=== PATIENT | female | born 1955 | race Caucasian/White ===

== ENCOUNTER 2016-03-06 08:21 | Emergency (ER) | payer OTHER, BC ==
--- NOTE | 2016-03-06 09:51 | EDDOCDS ---
Physician Documentation [facility] Name: Krysta Varma Age: 60 yrs Sex: Female : 1955 Arrival Date: 03/06/2016 Time: 08:21 Bed I5 / M5 Private MD: Yary Martin A Disposition: 03/06/16 09:46 Discharged to Home/Self Care. Impression: Contusion of right wrist, Contusion of right knee. - Condition is Stable. - Discharge Instructions: Contusion. - Medication Reconciliation, Local Pharmacy Hours form. - Follow up: Emergency Department; When: As needed; Reason: Worsening of conditions. Follow up: Private Physician; When: 4 - 5 days; Reason: Wound/Symptom Recheck, Recheck today's complaints, Continuance of care. - Problem is new. - Symptoms are unchanged. - Notes: THERE WAS NO FRACTURES ON YOUR XRAYS TODAY. PLEASE FOLLOW UP WITH YOUR PRIMARY CARE PROVIDER NEXT WEEK TO RECHECK YOUR SYMPTOMS. Historical: - Allergies: PENICILLINS (confusion); - Home Meds: 1. Lumigan 0.03 % Opht drop 1 drop once daily 2. Metrogel Vaginal 0.75 % vaginal gel 1 applicatorful once daily 3. Premarin 0.625 mg/gram Vagl crea 2 times per wk - PMHx: none; - PSHx: Appendectomy; ; Cholecystectomy; Tubal ligation; - Social history: Smoking status: Patient states was never smoker of tobacco. No barriers to communication noted, The patient speaks fluent Maldivian. - Family history: Not pertinent. - : The pt / caregiver states he / she is not on anticoagulants. Home medication list is obtained from the patient. - Exposure Risk Screening:: None identified. Vital Signs: 03/06 08:34 BP 148 / 91; Pulse 83; Resp 16; Temp 98.2(O); Pulse Ox 100% on R/A; Weight 84.82 kg / ml6 187 lbs (R); Height 5 ft. 9 in. (175.26 cm) (R); Pain 3/10; 08:34 Body Mass Index 27.61 (84.82 kg, 175.26 cm) ml6 MDM: 08:50 Financial registration complete. lg 09:03 Wrist, Complete Ordered. EDMS 09:03 Knee, Complete Ordered. EDMS 09:21 [facility] Payment Agreement was scanned into [employer] and attached to record. lg Signatures: Dispatcher [employer] Linda Carlton, Reg Reg lg Po Henderson RN RN ml6 Ariella Ibanez RN RN pml Rabia Millan, TAWANNA PAKenneth dt4 The chart was reviewed and I authenticate all verbal orders and agree with the evaluation and treatment provided.Attachments: 09:21 [facility] Payment Agreement lg MTDD
--- NOTE | 2016-03-06 09:52 | EDDOCDS ---
Nurse's Notes [facility] Name: Krysta Varma Age: 60 yrs Sex: Female : 1955 Arrival Date: 03/06/2016 Time: 08:21 Bed I5 / M5 Private MD: Yary Martin A Diagnosis: Contusion of right wrist;Contusion of right knee Presentation: 03/06 08:34 Presenting complaint: Patient states: states was walking to copier and tripped, c/o ml6 pain in right palm and bilateral knees. Adult Sepsis Screening: The patient does not have new or worsening altered mentation. Patient's respiratory rate is less than 22. Systolic blood pressure is greater than 100. Patient has a qSOFA score of 0- Negative Sepsis Screen. Suicide/Homicide risk assessment- the patient denies having any suicidal and/or homicidal ideations and does not present with any other emotional, behavioral or mental health complaints. 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 Transition of care: patient was not received from another setting of care. 08:34 Acuity: JESE Level 4 ml6 08:34 Method Of Arrival: Walkin/Carried/Asstd ml6 Triage Assessment: 08:41 General: Appears in no apparent distress, Behavior is appropriate for age, cooperative. ml6 Pain: Pain currently is 3 out of 10 on a pain scale. Pt Declines HIV testing. Neurological: Level of Consciousness is awake, alert. Respiratory: Airway is patent Respiratory effort is even, unlabored, Respiratory pattern is regular. Derm: Skin is pink, warm & dry. Musculoskeletal: No deficits noted. Historical: - Allergies: PENICILLINS (confusion); - Home Meds: 1. Lumigan 0.03 % Opht drop 1 drop once daily 2. Metrogel Vaginal 0.75 % vaginal gel 1 applicatorful once daily 3. Premarin 0.625 mg/gram Vagl crea 2 times per wk - PMHx: none; - PSHx: Appendectomy; ; Cholecystectomy; Tubal ligation; - Social history: Smoking status: Patient states was never smoker of tobacco. No barriers to communication noted, The patient speaks fluent Irish. - Family history: Not pertinent. - : The pt / caregiver states he / she is not on anticoagulants. Home medication list is obtained from the patient. - Exposure Risk Screening:: None identified. Screenin:45 Screening information is obtained from the patient. Fall risk: At risk due to prior ml6 history of falls. Assistance ADL's: requires no assistance with activities of daily living. Abuse/DV Screen: The patient / caregiver reports he/she is: not in a situation that causes fear, pain or injury. Nutritional screening: No deficits noted. Advance Directives: There is no active DNR order. home support is adequate. Assessment: 08:45 General: Appears in no apparent distress, Behavior is appropriate for age, cooperative. ml6 Pain: Pain currently is 3 out of 10 on a pain scale. Neurological: Level of Consciousness is awake, alert. Respiratory: Airway is patent Respiratory effort is even, unlabored, Respiratory pattern is regular, symmetrical. Derm: Skin is pink, warm & dry. 09:49 General: Appears in no apparent distress, Behavior is appropriate for age, crying. pml Pain: Location: right wrist Pain currently is 3 out of 10 on a pain scale. Neurological: Level of Consciousness is awake, alert, Oriented to person, place, time. Cardiovascular: Capillary refill < 3 seconds. Respiratory: Airway is patent Respiratory effort is even, unlabored. GI: Abdomen is non- distended. Derm: Skin is pink, warm & dry. Vital Signs: 08:34 BP 148 / 91; Pulse 83; Resp 16; Temp 98.2(O); Pulse Ox 100% on R/A; Weight 84.82 kg ml6 (R); Height 5 ft. 9 in. (175.26 cm) (R); Pain 3/10; 08:34 Body Mass Index 27.61 (84.82 kg, 175.26 cm) ml6 Vitals: 08:34 Log In Time: March 06, 2016 at 08:20. ml6 ED Course: 08:22 Patient visited by Ida Holt. mm15 08:22 Yary Martin is Private Physician. mm15 08:22 Patient moved to Waiting mm15 08:34 Triage Initiated ml6 08:36 Patient moved to I5 / ml6 08:45 The patient / caregiver is instructed regarding the plan of care and ED course. ml6 08:45 No IV's were initiated during this patient's visit. No procedures done that require ml6 assistance. 08:46 Patient visited by Po Henderson RN. ml6 08:49 Rabia Millan [facility]C [facility] dt4 08:49 Donald Conde MD is Attending Physician. dt4 08:49 Patient visited by Rabia Millan PA-C. dt4 09:18 Patient name changed from Krysta\S\M\S\Kojo\S\ to Krysta\S\Handy\S\Kojo. EDMS 09:21 [facility] Payment Agreement was scanned into [employer] and attached to record. Order Results: There are currently no results for this order. Outcome: 09:46 Discharge ordered by Provider. dt4 09:49 Discharge Assessment: Patient awake, alert and oriented x 3. No cognitive and/or pml functional deficits noted. Patient verbalized understanding of disposition instructions. patient administered narcotics - no. The following High Risk Discharge criteria are identified: None. Discharged to home ambulatory. Condition: good Condition: stable. Discharge instructions given to patient, Instructed on discharge instructions, follow up and referral plans. Demonstrated understanding of instructions, Pt was receptive of discharge instructions/ teaching. No special radiology studies were completed. Property sent home with patient. 09:51 Patient left the ED. pml Signatures: Dispatcher [facility] EDFL Linda Carolina, Reg Reg Po Henderson RN RN ml6 Ariella Ibanez RN RN pml Ida Holt mm15 Rabia Millan PA-C PA-C dt4 JUVENTINO
--- NOTE | 2016-03-06 10:42 | REP ---
6 view right knee series 08/15 Indication right knee pain after fall Comparison: None Findings: There is moderate to advanced narrowing of the lateral aspect of the patellofemoral joint with small marginal osteophytes. There is minimal spurring as of the condyles and tibial plateau. There is no acute fracture or dislocation within the right knee. Advanced osteoarthritic changes are seen in the lateral aspect of the patellofemoral joint. There is no suprapatellar effusion. Impression: moderate to advanced osteoarthritic changes in the lateral aspect of the patellofemoral joint. No acute fracture or joint effusion Signed by Nadya Ugarte MD 03/06/2016 10:33 A
--- NOTE | 2016-03-06 10:44 | REP ---
Four view right wrist series, 03/06/2016 Indication: right wrist pain after fall Comparison: None Findings: There is no acute fracture, subluxation, or dislocation within the right wrist. Visualized portions of the metacarpals, carpal bones, distal radius and ulna are intact. Minimal spurring is noted within the ulnar styloid process, and osteoarthritic changes are seen dorsally at the carpal-metacarpal joints, especially the third carpal-metacarpal joint. Impression: no acute fracture or dislocation in the right wrist. Mild generalized soft tissue swelling about the wrist and overlying the ulnar aspect of the fifth metacarpal. Signed by Nadya Ugarte MD 03/06/2016 10:35 A
--- NOTE | 2016-03-08 10:52 | EDDOCDS ---
Physician Documentation [facility] Name: Krysta Varma Age: 60 yrs Sex: Female : 1955 Arrival Date: 03/06/2016 Time: 08:21 Bed I5 / M5 Private MD: Yary Martin A Disposition: 03/06/16 09:46 Discharged to Home/Self Care. Impression: Contusion of right wrist, Contusion of right knee. - Condition is Stable. - Discharge Instructions: Contusion. - Medication Reconciliation, Local Pharmacy Hours form. - Follow up: Emergency Department; When: As needed; Reason: Worsening of conditions. Follow up: Private Physician; When: 4 - 5 days; Reason: Wound/Symptom Recheck, Recheck today's complaints, Continuance of care. - Problem is new. - Symptoms are unchanged. - Notes: THERE WAS NO FRACTURES ON YOUR XRAYS TODAY. PLEASE FOLLOW UP WITH YOUR PRIMARY CARE PROVIDER NEXT WEEK TO RECHECK YOUR SYMPTOMS. Historical: - Allergies: PENICILLINS (confusion); - Home Meds: 1. Lumigan 0.03 % Opht drop 1 drop once daily 2. Metrogel Vaginal 0.75 % vaginal gel 1 applicatorful once daily 3. Premarin 0.625 mg/gram Vagl crea 2 times per wk - PMHx: none; - PSHx: Appendectomy; ; Cholecystectomy; Tubal ligation; - Social history: Smoking status: Patient states was never smoker of tobacco. No barriers to communication noted, The patient speaks fluent Emirati. - Family history: Not pertinent. - : The pt / caregiver states he / she is not on anticoagulants. Home medication list is obtained from the patient. - Exposure Risk Screening:: None identified. Vital Signs: 03/06 08:34 BP 148 / 91; Pulse 83; Resp 16; Temp 98.2(O); Pulse Ox 100% on R/A; Weight 84.82 kg / ml6 187 lbs (R); Height 5 ft. 9 in. (175.26 cm) (R); Pain 3/10; 08:34 Body Mass Index 27.61 (84.82 kg, 175.26 cm) ml6 MDM: 08:50 Financial registration complete. lg 09:03 Wrist, Complete Ordered. EDMS 09:03 Knee, Complete Ordered. EDMS 09:21 [facility] Payment Agreement was scanned into [employer] and attached to record. lg 14:48 T-Sheet-- Draft Copy was scanned into [employer] and attached to record. gb 14:48 Radiology Report was scanned into [employer] and attached to record. gb Signatures: Dispatcher [employer] EDMS Chyna Hendrickson, Reg Reg gb Linda Carolina, Reg Reg lg Po Henderson RN RN ml6 Ariella Ibanez RN RN pml Rabia Millan PA-C PAKenneth dt4 The chart was reviewed and I authenticate all verbal orders and agree with the evaluation and treatment provided.Attachments: 09:21 [facility] Payment Agreement lg 14:48 T-Sheet-- Draft Copy gb Chart Complete MTDD
--- NOTE | 2016-03-08 10:52 | EDDOCDS ---
Physician Documentation [facility] Name: Krysta Varma Age: 60 yrs Sex: Female : 1955 Arrival Date: 03/06/2016 Time: 08:21 Bed I5 / M5 Private MD: Yary Martin A Disposition: 03/06/16 09:46 Discharged to Home/Self Care. Impression: Contusion of right wrist, Contusion of right knee. - Condition is Stable. - Discharge Instructions: Contusion. - Medication Reconciliation, Local Pharmacy Hours form. - Follow up: Emergency Department; When: As needed; Reason: Worsening of conditions. Follow up: Private Physician; When: 4 - 5 days; Reason: Wound/Symptom Recheck, Recheck today's complaints, Continuance of care. - Problem is new. - Symptoms are unchanged. - Notes: THERE WAS NO FRACTURES ON YOUR XRAYS TODAY. PLEASE FOLLOW UP WITH YOUR PRIMARY CARE PROVIDER NEXT WEEK TO RECHECK YOUR SYMPTOMS. Historical: - Allergies: PENICILLINS (confusion); - Home Meds: 1. Lumigan 0.03 % Opht drop 1 drop once daily 2. Metrogel Vaginal 0.75 % vaginal gel 1 applicatorful once daily 3. Premarin 0.625 mg/gram Vagl crea 2 times per wk - PMHx: none; - PSHx: Appendectomy; ; Cholecystectomy; Tubal ligation; - Social history: Smoking status: Patient states was never smoker of tobacco. No barriers to communication noted, The patient speaks fluent Ivorian. - Family history: Not pertinent. - : The pt / caregiver states he / she is not on anticoagulants. Home medication list is obtained from the patient. - Exposure Risk Screening:: None identified. Vital Signs: 03/06 08:34 BP 148 / 91; Pulse 83; Resp 16; Temp 98.2(O); Pulse Ox 100% on R/A; Weight 84.82 kg / ml6 187 lbs (R); Height 5 ft. 9 in. (175.26 cm) (R); Pain 3/10; 08:34 Body Mass Index 27.61 (84.82 kg, 175.26 cm) ml6 MDM: 08:50 Financial registration complete. lg 09:03 Wrist, Complete Ordered. EDMS 09:03 Knee, Complete Ordered. EDMS 09:21 [facility] Payment Agreement was scanned into [employer] and attached to record. lg 14:48 T-Sheet-- Draft Copy was scanned into [employer] and attached to record. gb 14:48 Radiology Report was scanned into [employer] and attached to record. gb Signatures: Dispatcher [employer] EDMS Chyna Hendrickson, Reg Reg gb Linda Carolina, Reg Reg lg Po Henderson RN RN ml6 Ariella Ibanez RN RN pml Rabia Millan PA-C PAKenneth dt4 The chart was reviewed and I authenticate all verbal orders and agree with the evaluation and treatment provided.Attachments: 09:21 [facility] Payment Agreement lg 14:48 T-Sheet-- Draft Copy gb Chart Complete MTDD
--- NOTE | 2016-03-08 10:53 | EDDOCDS ---
Nurse's Notes [facility] Name: Krysta Varma Age: 60 yrs Sex: Female : 1955 Arrival Date: 03/06/2016 Time: 08:21 Bed I5 / M5 Private MD: Yary Martin A Diagnosis: Contusion of right wrist;Contusion of right knee Presentation: 03/06 08:34 Presenting complaint: Patient states: states was walking to copier and tripped, c/o ml6 pain in right palm and bilateral knees. Adult Sepsis Screening: The patient does not have new or worsening altered mentation. Patient's respiratory rate is less than 22. Systolic blood pressure is greater than 100. Patient has a qSOFA score of 0- Negative Sepsis Screen. Suicide/Homicide risk assessment- the patient denies having any suicidal and/or homicidal ideations and does not present with any other emotional, behavioral or mental health complaints. Status: Patient is not a administrative services officer or dependent. Transition of care: patient was not received from another setting of care. 08:34 Acuity: JESE Level 4 ml6 08:34 Method Of Arrival: Walkin/Carried/Asstd ml6 Triage Assessment: 08:41 General: Appears in no apparent distress, Behavior is appropriate for age, cooperative. ml6 Pain: Pain currently is 3 out of 10 on a pain scale. Pt Declines HIV testing. Neurological: Level of Consciousness is awake, alert. Respiratory: Airway is patent Respiratory effort is even, unlabored, Respiratory pattern is regular. Derm: Skin is pink, warm & dry. Musculoskeletal: No deficits noted. Historical: - Allergies: PENICILLINS (confusion); - Home Meds: 1. Lumigan 0.03 % Opht drop 1 drop once daily 2. Metrogel Vaginal 0.75 % vaginal gel 1 applicatorful once daily 3. Premarin 0.625 mg/gram Vagl crea 2 times per wk - PMHx: none; - PSHx: Appendectomy; ; Cholecystectomy; Tubal ligation; - Social history: Smoking status: Patient states was never smoker of tobacco. No barriers to communication noted, The patient speaks fluent Korean. - Family history: Not pertinent. - : The pt / caregiver states he / she is not on anticoagulants. Home medication list is obtained from the patient. - Exposure Risk Screening:: None identified. Screenin:45 Screening information is obtained from the patient. Fall risk: At risk due to prior ml6 history of falls. Assistance ADL's: requires no assistance with activities of daily living. Abuse/DV Screen: The patient / caregiver reports he/she is: not in a situation that causes fear, pain or injury. Nutritional screening: No deficits noted. Advance Directives: There is no active DNR order. home support is adequate. Assessment: 08:45 General: Appears in no apparent distress, Behavior is appropriate for age, cooperative. ml6 Pain: Pain currently is 3 out of 10 on a pain scale. Neurological: Level of Consciousness is awake, alert. Respiratory: Airway is patent Respiratory effort is even, unlabored, Respiratory pattern is regular, symmetrical. Derm: Skin is pink, warm & dry. 09:49 General: Appears in no apparent distress, Behavior is appropriate for age, crying. pml Pain: Location: right wrist Pain currently is 3 out of 10 on a pain scale. Neurological: Level of Consciousness is awake, alert, Oriented to person, place, time. Cardiovascular: Capillary refill < 3 seconds. Respiratory: Airway is patent Respiratory effort is even, unlabored. GI: Abdomen is non- distended. Derm: Skin is pink, warm & dry. Vital Signs: 08:34 BP 148 / 91; Pulse 83; Resp 16; Temp 98.2(O); Pulse Ox 100% on R/A; Weight 84.82 kg ml6 (R); Height 5 ft. 9 in. (175.26 cm) (R); Pain 3/10; 08:34 Body Mass Index 27.61 (84.82 kg, 175.26 cm) ml6 Vitals: 08:34 Log In Time: March 06, 2016 at 08:20. ml6 ED Course: 08:22 Patient visited by Ida Holt. mm15 08:22 Yary Martin is Private Physician. mm15 08:22 Patient moved to Waiting mm15 08:34 Triage Initiated ml6 08:36 Patient moved to I5 / ml6 08:45 The patient / caregiver is instructed regarding the plan of care and ED course. ml6 08:45 No IV's were initiated during this patient's visit. No procedures done that require ml6 assistance. 08:46 Patient visited by Po Henderson RN. ml6 08:49 Rabia Millan [facility]-C [facility]. dt4 08:49 Donald Coned MD is Attending Physician. dt4 08:49 Patient visited by Rabia Millan PA-C. dt4 09:18 Patient name changed from Krysta\S\M\S\Kojo\S\ to Krysta\S\Handy\S\Kojo. EDMS 09:21 [facility] Payment Agreement was scanned into [employer] and attached to record. lg 11:14 Knee, Complete Returned. EDMS 11:14 Wrist, Complete Returned. EDMS 14:48 T-Sheet-- Draft Copy was scanned into [employer] and attached to record. gb 14:48 Radiology Report was scanned into [employer] and attached to record. gb Order Results: Radiology Order: Wrist, Complete Test: Wrist, Complete REASON FOR EXAMINATION: right wrist pain after fall; Four view right wrist series, 03/06/2016; ; Indication: right wrist pain after fall; ; Comparison: None; ; Findings: There is no acute fracture, subluxation, or dislocation within the; right wrist. Visualized portions of the metacarpals, carpal bones, distal; radius and ulna are intact. Minimal spurring is noted within the ulnar styloid; process, and osteoarthritic changes are seen dorsally at the carpal-metacarpal; joints, especially the third carpal-metacarpal joint.; ; Impression: no acute fracture or dislocation in the right wrist. Mild; generalized soft tissue swelling about the wrist and overlying the ulnar aspect; of the fifth metacarpal.; ; ; ; ; Signed by; Nadya Ugarte MD 03/06/2016 10:35 A; Radiology Order: Knee, Complete Test: Knee, Complete REASON FOR EXAMINATION: right knee pain after fall; 6 view right knee series 08/15; ; Indication right knee pain after fall; ; Comparison: None; ; Findings: There is moderate to advanced narrowing of the lateral aspect of the; patellofemoral joint with small marginal osteophytes. There is minimal spurring; as of the condyles and tibial plateau. There is no acute fracture or; dislocation within the right knee. Advanced osteoarthritic changes are seen in; the lateral aspect of the patellofemoral joint.; ; There is no suprapatellar effusion.; ; Impression: moderate to advanced osteoarthritic changes in the lateral aspect of; the patellofemoral joint. No acute fracture or joint effusion; ; ; Signed by; Nadya Ugarte MD 03/06/2016 10:33 A; Outcome: 09:46 Discharge ordered by Provider. dt4 09:49 Discharge Assessment: Patient awake, alert and oriented x 3. No cognitive and/or pml functional deficits noted. Patient verbalized understanding of disposition instructions. patient administered narcotics - no. The following High Risk Discharge criteria are identified: None. Discharged to home ambulatory. Condition: good Condition: stable. Discharge instructions given to patient, Instructed on discharge instructions, follow up and referral plans. Demonstrated understanding of instructions, Pt was receptive of discharge instructions/ teaching. No special radiology studies were completed. Property sent home with patient. 09:51 Patient left the ED. pml Signatures: Dispatcher [employer] EDMS Chyna Hendrickson, Reg Reg gb Linda Carolina, Reg Reg lg Po Henderson RN RN ml6 Ariella Ibanez RN RN pml Ida Holt mm15 Rabia Millan, PA-Patrick PA-C dt4 Chart Complete MTDRex
== END 2016-03-06 09:51 | disposition home or self-care (01) ==
LOC: M ED 08:21
DX: S60.211A Contusion of right wrist, initial encounter (principal); S80.01XA Contusion of right knee, initial encounter; W22.8XXA Striking against or struck by other objects, initial encounter; Y92.89 Other specified places as the place of occurrence of the external cause; Y93.9 Activity, unspecified; Y99.0 Civilian activity done for income or pay; Z79.899 Other long term (current) drug therapy; Z88.0 Allergy status to penicillin

== ENCOUNTER → 2017-02-02 | Outpatient (CLI) | payer OTHER ==
--- NOTE | 2017-02-02 13:03 | REPMRS ---
Patient History The patient states she had a clinical breast exam in 01/2017. Patient is postmenopausal. Family history of ovarian cancer in maternal cousin under age 50. Taking estrogen for 6 years. Digital Woman Screen Mammo: February 02, 2017 - Exam #: [id number] Bilateral CC and MLO view(s) were taken. Technologist: Keren Merritt, Technologist Prior study comparison: January 30, 2016, digital woman screen mammo performed at [facility]. January 28, 2015, digital woman screen mammo performed at [facility]. FINDINGS: There are scattered fibroglandular densities. There has been no change in the appearance of the mammogram from the prior studies. There is a mild amount of residual fibroglandular tissue which is fairly symmetric. There is no interval development of dominant mass, architectural distortion, or clustered microcalcification suggestive of malignancy. There are scattered, small, benign calcifications of doubtful clinical significance. No significant changes when compared with prior studies. ASSESSMENT: BI-RADS/ACR category 2 mammogram. Benign finding(s). Recommendation Routine screening mammogram in 1 year (for women over age 40). This mammogram was interpreted with the aid of an FDA-approved computer-aided dectection system. A. Negative x-ray reports should not delay biopsy if a dominant or clinically suspicious mass is present. B. Four to eight percent of cancers are not identified by mammography. C. Adenosis and dense breast may obscure an underlying neoplasm. Electronically Signed By: Agapito Quinonez MD 02/02/17 1434
== END ==
LOC: M WHC 08:39
PROVIDERS: ATTEND Nurse Practitioner Family
DX: Z12.31 Encounter for screening mammogram for malignant neoplasm of breast (principal)

== ENCOUNTER → 2017-05-19 | Outpatient (REF) | payer OTHER ==
[2017-05-19 12:20] LABS: BASO % 0.6 % (0.0-1.0); EOS # 0.1 10^3/uL (0.0-0.50); EOS % 1.5 % (0.0-3.0); HEMATOCRIT 39.9 % (36.0-47.0); HEMOGLOBIN 13.4 g/dl (12.0-16.0); IMMATURE GRANULOCYTE % 0.3 % (0-3.0); LYMPH # 1.1 10^3/uL (1.5-4.5); LYMPH % 15.3 % (24.0-44.0); MEAN CORPUSCULAR HEMOGLOBIN 29.9 pg (27.0-33.0); MEAN CORPUSCULAR HGB CONC 33.6 g/dl (32.0-36.5); MEAN CORPUSCULAR VOLUME 89.1 fl (80.0-96.0); MONO # 0.5 10^3/uL (0.0-0.8); MONO % 7.3 % (0.0-5.0); NEUTROPHILS # 5.4 10^3/uL (1.8-7.7); PLATELET COUNT, AUTOMATED 224 10^3/uL (150-450); RED BLOOD COUNT 4.48 10^6/uL (4.00-5.40); RED CELL DISTRIBUTION WIDTH 11.8 % (11.5-14.5); WHITE BLOOD COUNT 7.1 10^3/uL (4.0-10.0)
[2017-05-19 13:13] LABS: ALBUMIN 3.8 GM/DL (3.2-5.2); ALBUMIN/GLOBULIN RATIO 1.36 (1.00-1.93); ALKALINE PHOSPHATASE 57 U/L (45-117); ALT/SGPT 28 U/L (12-78); ANION GAP 8 MEQ/L (8-16); AST/SGOT 15 U/L (7-37); BILIRUBIN,TOTAL 0.3 MG/DL (0.2-1.0); BLOOD UREA NITROGEN 13 MG/DL (7-18); CALCIUM LEVEL 8.9 MG/DL (8.8-10.2); CARBON DIOXIDE LEVEL 28 MEQ/L (21-32); CHLORIDE LEVEL 103 MEQ/L (98-107); CHOLESTEROL LEVEL 175 MG/DL (<200); CHOLESTEROL RISK RATIO 2.215 (<5); GLOMERULAR FILTRATION RATE > 60.0 (>45); GLUCOSE, FASTING 102 MG/DL (70-100); HDL CHOLESTEROL 79 MG/DL (>40); NON-HDL-C 96 MG/DL; POTASSIUM SERUM 4.1 MEQ/L (3.5-5.1); SODIUM LEVEL 139 MEQ/L (136-145); TOTAL PROTEIN 6.6 GM/DL (6.4-8.2); TRIGLYCERIDES LEVEL 70 MG/DL (<150)
== END ==
LOC: M SFHCADAM 08:05
DX: Z00.00 Encounter for general adult medical examination without abnormal findings (principal)

== ENCOUNTER → 2018-03-18 | Outpatient (CLI) | payer OTHER ==
--- NOTE | 2018-03-18 14:55 | REPMRS ---
Patient History The patient states she had a clinical breast exam in 03/2018. Patient is postmenopausal. Family history of ovarian cancer under age 50 in maternal cousin, breast cancer at age 50 or over in maternal cousin. Took estrogen for 6 years 6 months. Digital Woman Screen Mammo: March 18, 2018 - Exam #: [id number] Bilateral CC and MLO view(s) were taken. Technologist: Yady Núñez Technologist Prior study comparison: February 02, 2017, digital woman screen mammo performed at [facility]. January 30, 2016, digital woman screen mammo performed at [facility]. January 28, 2015, digital woman screen mammo performed at [facility]. FINDINGS: There are scattered fibroglandular densities. There has been no change in the appearance of the mammogram from the prior studies. There is a mild amount of scattered fibroglandular density which is fairly symmetric. There is no interval development of dominant mass, architectural distortion, or clustered microcalcification suggestive of malignancy. 3-D tomosynthesis shows no additional findings. Assessment: BI-RADS/ACR category 1 mammogram. Negative. Recommendation Routine screening mammogram of both breasts in 1 year (for women over age 40). This patient's Lifetime Breast Cancer RIsk is estimated at 7.2 %. This mammogram was interpreted with the aid of an FDA-approved computer-aided dectection system. Electronically Signed By: Christofer Barry MD 03/18/18 [id number]
== END ==
LOC: M WHC 10:46
PROVIDERS: ATTEND Nurse Practitioner Family
DX: Z12.31 Encounter for screening mammogram for malignant neoplasm of breast (principal)

== ENCOUNTER → 2018-03-18 | Outpatient (REF) | payer OTHER ==
[2018-03-22 15:26] LABS: HPV HYBRID CAPTURE II Negative (Negative)
== END ==
LOC: M SFHCWAGY 11:09
PROVIDERS: ATTEND Nurse Practitioner Family
DX: Z12.4 Encounter for screening for malignant neoplasm of cervix (principal)

== ENCOUNTER → 2018-06-15 | Outpatient (REF) | payer OTHER ==
[2018-06-15 12:33] LABS: BASO % 0.6 % (0.0-1.0); EOS # 0.1 10^3/uL (0.0-0.50); EOS % 1.6 % (0.0-3.0); HEMATOCRIT 41.9 % (36.0-47.0); HEMOGLOBIN 13.7 g/dl (12.0-15.5); LYMPH # 1.5 10^3/uL (1.5-4.5); LYMPH % 30.9 % (24.0-44.0); MEAN CORPUSCULAR HEMOGLOBIN 30.2 pg (27.0-33.0); MEAN CORPUSCULAR HGB CONC 32.7 g/dl (32.0-36.5); MEAN CORPUSCULAR VOLUME 92.3 fl (80.0-96.0); MONO # 0.3 10^3/uL (0.0-0.8); MONO % 6.5 % (0.0-5.0); NEUTROPHILS # 2.9 10^3/uL (1.8-7.7); PLATELET COUNT, AUTOMATED 294 10^3/uL (150-450); RED BLOOD COUNT 4.54 10^6/uL (4.00-5.40); WHITE BLOOD COUNT 4.9 10^3/uL (4.0-10.0)
[2018-06-15 13:04] LABS: ALT/SGPT 28 U/L (12-78); BILIRUBIN,TOTAL 0.5 MG/DL (0.2-1.0); BLOOD UREA NITROGEN 12 MG/DL (7-18); CALCIUM LEVEL 9.3 MG/DL (8.8-10.2); CARBON DIOXIDE LEVEL 31 MEQ/L (21-32); CHLORIDE LEVEL 105 MEQ/L (98-107); GLOMERULAR FILTRATION RATE > 60.0 (>45); GLUCOSE, FASTING 88 MG/DL (70-100); POTASSIUM SERUM 5.1 MEQ/L (3.5-5.1); SODIUM LEVEL 140 MEQ/L (136-145); TOTAL PROTEIN 6.4 GM/DL (6.4-8.2)
== END ==
LOC: M SFHCADAM 07:52
PROVIDERS: ATTEND Family Medicine
DX: Z00.00 Encounter for general adult medical examination without abnormal findings (principal)

== ENCOUNTER 2018-09-20 07:56 | Day surgery (SDC) | payer OTHER ==
[~2018-09-20] VITALS: Ht 175.3 cm; Wt 77.6 kg
[~2018-09-20 07:56] MED LIST: CALC600T60 PO; METR0.7533 TOP; MULTCAP PO; OMEG1CAP16 PO; XALA0.007 OU; [UNRECOGNIZED DRUG - CODE] PO
[2018-09-20] MEDS ORDERED: PROPOFOL 200 MG/20 ML VIAL As Ordered ONE ×2 (08:50→10:14)
[2018-09-20] MEDS ORDERED: LIDOCAINE 2% INJ 100 MG/5 ML SDV (FOR ANES.) As Ordered ONE (08:51)
[2018-09-20] MEDS ORDERED: NS 1,000 ML IV ONE (09:00)
--- NOTE | 2018-09-20 10:38 | ROOR ---
Patient Name: Krysta Varma Procedure Date: 09/20/2018 9:54 AM Date of : 1955 Age: 63 Room: [facility] Gender: Female Note Status: Finalized Procedure: Colonoscopy Indications: Screening for colorectal malignant neoplasm Providers: Dereje Lemus MD Referring MD: Shira HUFF DO Requestdonna Provider: Medicines: Monitored Anesthesia Care Complications: No immediate complications. Procedure: Pre-Anesthesia Assessment: - Prior to the procedure, a History and Physical was performed, and patient medications and allergies were reviewed. The patient is competent. The risks and benefits of the procedure and the sedation options and risks were discussed with the patient. All questions were answered and informed consent was obtained. Patient identification and proposed procedure were verified by the physician, the nurse and the anesthesiologist in the procedure room. Mental Status Examination: alert and oriented. Airway Examination: normal oropharyngeal airway and neck mobility. Respiratory Examination: clear to auscultation. CV Examination: normal. Prophylactic Antibiotics: The patient does not require prophylactic antibiotics. Prior Anticoagulants: The patient has taken no previous anticoagulant or antiplatelet agents. ASA Grade Assessment: II - A patient with mild systemic disease. After reviewing the risks and benefits, the patient was deemed in satisfactory condition to undergo the procedure. The anesthesia plan was to use monitored anesthesia care (MAC). Immediately prior to administration of medications, the patient was re-assessed for adequacy to receive sedatives. The heart rate, respiratory rate, oxygen saturations, blood pressure, adequacy of pulmonary ventilation, and response to care were monitored throughout the procedure. The physical status of the patient was re-assessed after the procedure. The Colonoscope was introduced through the anus and advanced to the terminal ileum, with identification of the appendiceal orifice and IC valve. The colonoscopy was performed without difficulty. The patient tolerated the procedure well. The quality of the bowel preparation was good. The terminal ileum, ileocecal valve, appendiceal orifice, and rectum were photographed. Scope insertion time was 3 minutes. Scope withdrawal time was 9 minutes. The total duration of the procedure was 12 minutes. Findings: The perianal and digital rectal examinations were normal. The terminal ileum appeared normal. Multiple small and large-mouthed diverticula were found from sigmoid to descending colon. There was no evidence of diverticular bleeding. Non-bleeding external and internal hemorrhoids were found during retroflexion. The hemorrhoids were medium-sized. Impression: - The examined portion of the ileum was normal. - Moderate diverticulosis from sigmoid to descending colon. There was no evidence of diverticular bleeding. - Non-bleeding external and internal hemorrhoids. - No specimens collected. Recommendation: - Patient has a contact number available for emergencies. The signs and symptoms of potential delayed complications were discussed with the patient. Return to normal activities tomorrow. Written discharge instructions were provided to the patient. - High fiber diet. - Continue present medications. - Repeat colonoscopy in 10 years for screening purposes. - Return to GI clinic in 10 years. - Return to primary care physician. Dereje Lemus MD Dereje Lemus MD 09/20/2018 10:37:46 AM Electronically signed by Dereje Lemus MD Number of Addenda: 0 Note Initiated On: 09/20/2018 9:54 AM Estimated Blood Loss: Estimated blood loss: none.
[2018-09-20 10:55] VITALS: BP 105/57
== END 2018-09-20 10:58 | disposition home or self-care (01) ==
LOC: M OPP 07:56
PROVIDERS: ATTEND Internal Medicine Gastroenterology
DX: Z12.11 Encounter for screening for malignant neoplasm of colon (principal); K64.8 Other hemorrhoids; K57.30 Diverticulosis of large intestine without perforation or abscess without bleeding; Z79.899 Other long term (current) drug therapy; Z88.0 Allergy status to penicillin

== ENCOUNTER → 2019-03-20 | Outpatient (CLI) | payer OTHER ==
--- NOTE | 2019-03-20 15:41 | REPMRS ---
Patient History The patient states she had a clinical breast exam in 03/2019. Family history of ovarian cancer under age 50 in maternal cousin, breast cancer at age 50 or over in maternal cousin. Took estrogen for 6 years 6 months. Digital Woman Screen Mammo: March 20, 2019 - Exam #: [id number] Bilateral CC and MLO view(s) were taken. Technologist: Keren Merritt, Technologist Prior study comparison: March 18, 2018, bilateral digital woman screen mammo performed at [facility]. February 02, 2017, digital woman screen mammo performed at [facility]. January 30, 2016, digital woman screen mammo performed at [facility]. FINDINGS: There are scattered fibroglandular densities. There has been no change in the appearance of the mammogram from the prior studies. There is a mild amount of scattered fibroglandular density which is fairly symmetric. There is no interval development of dominant mass, architectural distortion, or grouped microcalcification suggestive of malignancy. 3-D tomosynthesis shows no additional findings. Assessment: BI-RADS/ACR category 1 mammogram. Negative Mammogram. Recommendation Routine screening mammogram of both breasts in 1 year (for women over age 40). This patient's Lifetime Breast Cancer Risk is estimated at 6.9 %. This mammogram was interpreted with the aid of an FDA-approved computer-aided dectection system. Electronically Signed By: Christofer Barry MD 03/20/19 [id number]
== END ==
LOC: M WHC 10:43
PROVIDERS: ATTEND Nurse Practitioner Family
DX: Z12.31 Encounter for screening mammogram for malignant neoplasm of breast (principal); Z92.29 Personal history of other drug therapy

== ENCOUNTER → 2019-06-19 | Outpatient (REF) | payer OTHER ==
[2019-06-19 13:54] LABS: HEMOGLOBIN 13.8 g/dl (12.0-15.5); MEAN CORPUSCULAR HEMOGLOBIN 30.3 pg (27.0-33.0); MEAN CORPUSCULAR HGB CONC 33.7 g/dl (32.0-36.5); MEAN CORPUSCULAR VOLUME 90.1 fl (80.0-96.0); PLATELET COUNT, AUTOMATED 271 10^3/uL (150-450); RED BLOOD COUNT 4.55 10^6/uL (4.00-5.40); WHITE BLOOD COUNT 6.6 10^3/uL (4.0-10.0)
[2019-06-19 14:04] LABS: ALBUMIN 3.8 GM/DL (3.2-5.2); ALT/SGPT 29 U/L (12-78); BILIRUBIN,TOTAL 0.6 MG/DL (0.2-1.0); BLOOD UREA NITROGEN 15 MG/DL (7-18); CALCIUM LEVEL 9.2 MG/DL (8.8-10.2); CARBON DIOXIDE LEVEL 29 MEQ/L (21-32); CHLORIDE LEVEL 104 MEQ/L (98-107); CHOLESTEROL LEVEL 208 MG/DL (<200); CHOLESTEROL RISK RATIO 2.363 (<5); CREATININE FOR GFR 0.67 MG/DL (0.55-1.30); GLOMERULAR FILTRATION RATE > 60.0 (>45); GLUCOSE, FASTING 100 MG/DL (70-100); HDL CHOLESTEROL 88 MG/DL (>40); LDL CHOLESTEROL 109 MG/DL (<100); NON-HDL-C 120 MG/DL; POTASSIUM SERUM 4.8 MEQ/L (3.5-5.1); SODIUM LEVEL 137 MEQ/L (136-145); TOTAL PROTEIN 6.8 GM/DL (6.4-8.2); TRIGLYCERIDES LEVEL 56 MG/DL (<150)
== END ==
LOC: M SFHCADAM 09:18
PROVIDERS: ATTEND Family Medicine
DX: Z00.00 Encounter for general adult medical examination without abnormal findings (principal)

== ENCOUNTER → 2020-03-21 | Outpatient (CLI) | payer OTHER ==
--- NOTE | 2020-03-21 11:14 | REPMRS ---
Patient History The patient states she had a clinical breast exam in 03/2020. Family history of ovarian cancer under age 50 in maternal cousin, breast cancer at age 50 or over in maternal cousin. Took estrogen for 6 years 6 months. 3D TOMOSYNTHESIS WAS PERFORMED. The Maylin Coker lifetime risk for breast cancer is 6.7%. Volpara breast density b. Digital Woman Screen Mammo: March 21, 2020 - Exam #: [id number] Bilateral CC and MLO view(s) were taken. Technologist: Keren Merritt, Technologist Prior study comparison: March 20, 2019, bilateral digital woman screen mammo performed at [facility]. March 18, 2018, bilateral digital woman screen mammo performed at [facility]. FINDINGS: There are scattered fibroglandular densities. There has been no change in the appearance of the mammogram from the prior studies. There is a mild amount of residual fibroglandular tissue which is fairly symmetric. There is no interval development of dominant mass, architectural distortion, or clustered microcalcification suggestive of malignancy. Assessment: BI-RADS/ACR category 1 mammogram. Negative Mammogram. Recommendation Routine screening mammogram in 1 year (for women over age 40). This mammogram was interpreted with the aid of an FDA-approved computer-aided dectection system. Electronically Signed By: Angel Irwin MD 03/21/20 [id number]
== END ==
LOC: M WHC 09:56
PROVIDERS: ATTEND Nurse Practitioner Family
DX: Z12.31 Encounter for screening mammogram for malignant neoplasm of breast (principal)

== ENCOUNTER → 2020-06-06 | Outpatient (REF) | payer OTHER ==
[2020-06-06 13:16] LABS: BASO % 0.6 % (0.0-1.0); EOS # 0.1 10^3/uL (0.0-0.5); EOS % 1.3 % (0.0-3.0); LYMPH # 1.4 10^3/uL (1.5-5.0); LYMPH % 23.2 % (24.0-44.0); MEAN CORPUSCULAR HEMOGLOBIN 30.1 pg (27.0-33.0); MEAN CORPUSCULAR HGB CONC 33.3 g/dl (32.0-36.5); MEAN CORPUSCULAR VOLUME 90.3 fl (80.0-96.0); MONO # 0.5 10^3/uL (0.0-0.8); MONO % 7.2 % (2.0-8.0); NEUTROPHILS # 4.2 10^3/uL (1.5-8.5); NEUTROPHILS % 67.4 % (36.0-66.0); PLATELET COUNT, AUTOMATED 267 10^3/uL (150-450); RED BLOOD COUNT 4.32 10^6/uL (4.00-5.40); WHITE BLOOD COUNT 6.2 10^3/uL (4.0-10.0)
[2020-06-06 13:42] LABS: ALBUMIN 3.7 GM/DL (3.2-5.2); ALT/SGPT 27 U/L (12-78); BILIRUBIN,TOTAL 0.6 MG/DL (0.2-1.0); BLOOD UREA NITROGEN 11 MG/DL (7-18); CALCIUM LEVEL 9.2 MG/DL (8.8-10.2); CARBON DIOXIDE LEVEL 32 MEQ/L (21-32); CHLORIDE LEVEL 103 MEQ/L (98-107); CHOLESTEROL LEVEL 204 MG/DL (<200); CHOLESTEROL RISK RATIO 2.518 (<5); GLOMERULAR FILTRATION RATE > 60.0 (>45); GLUCOSE, FASTING 94 MG/DL (70-100); HDL CHOLESTEROL 81 MG/DL (>40); LDL CHOLESTEROL 109 MG/DL (<100); NON-HDL-C 123 MG/DL; POTASSIUM SERUM 4.7 MEQ/L (3.5-5.1); SODIUM LEVEL 139 MEQ/L (136-145); TOTAL PROTEIN 6.1 GM/DL (6.4-8.2); TRIGLYCERIDES LEVEL 68 MG/DL (<150)
== END ==
LOC: M SFHCADAM 07:54
PROVIDERS: ATTEND Family Medicine
DX: Z00.00 Encounter for general adult medical examination without abnormal findings (principal)

== ENCOUNTER → 2021-03-25 | Outpatient (REF) | payer OTHER | LOC: M SFHCWAGY 12:59 | PROVIDERS: ATTEND Nurse Practitioner Women's Health | DX: Z12.4 Encounter for screening for malignant neoplasm of cervix (principal) ==

== ENCOUNTER → 2021-08-04 | Outpatient (REF) | payer OTHER ==
[2021-08-04 16:14] LABS: BASO # 0.1 10^3/uL (0.0-0.2); BASO % 0.8 % (0.0-1.0); EOS # 0.1 10^3/uL (0.0-0.5); EOS % 1.6 % (0.0-3.0); HEMATOCRIT 39.8 % (36.0-47.0); HEMOGLOBIN 13.2 g/dl (12.0-15.5); LYMPH # 1.7 10^3/uL (1.5-5.0); LYMPH % 22.6 % (24.0-44.0); MEAN CORPUSCULAR HEMOGLOBIN 30.1 pg (27.0-33.0); MEAN CORPUSCULAR HGB CONC 33.2 g/dl (32.0-36.5); MEAN CORPUSCULAR VOLUME 90.9 fl (80.0-96.0); MONO # 0.6 10^3/uL (0.0-0.8); MONO % 8.4 % (2.0-8.0); NEUTROPHILS # 4.9 10^3/uL (1.5-8.5); NEUTROPHILS % 66.3 % (36.0-66.0); PLATELET COUNT, AUTOMATED 291 10^3/uL (150-450); RED BLOOD COUNT 4.38 10^6/uL (4.00-5.40); WHITE BLOOD COUNT 7.4 10^3/uL (4.0-10.0)
== END ==
LOC: M SFHCADAM 11:37
PROVIDERS: ATTEND Family Medicine
DX: R04.0 Epistaxis (principal)

== ENCOUNTER → 2021-10-20 | Outpatient (REF) | payer MEDICARE ==
[2021-10-20 14:17] LABS: BASO % 0.7 % (0.0-1.0); EOS # 0.1 10^3/uL (0.0-0.5); EOS % 1.5 % (0.0-3.0); HEMATOCRIT 37.1 % (36.0-47.0); HEMOGLOBIN 12.5 g/dl (12.0-15.5); LYMPH # 1.3 10^3/uL (1.5-5.0); MEAN CORPUSCULAR HEMOGLOBIN 30.2 pg (27.0-33.0); MEAN CORPUSCULAR HGB CONC 33.7 g/dl (32.0-36.5); MEAN CORPUSCULAR VOLUME 89.6 fl (80.0-96.0); MONO # 0.5 10^3/uL (0.0-0.8); MONO % 8.2 % (2.0-8.0); NEUTROPHILS # 4.1 10^3/uL (1.5-8.5); NEUTROPHILS % 68.3 % (36.0-66.0); PLATELET COUNT, AUTOMATED 275 10^3/uL (150-450); RED BLOOD COUNT 4.14 10^6/uL (4.00-5.40)
[2021-10-20 15:01] LABS: ALBUMIN 3.6 GM/DL (3.2-5.2); ALT/SGPT 27 U/L (12-78); BILIRUBIN,TOTAL 0.4 MG/DL (0.2-1.0); BLOOD UREA NITROGEN 12 MG/DL (7-18); CALCIUM LEVEL 8.8 MG/DL (8.8-10.2); CARBON DIOXIDE LEVEL 28 MEQ/L (21-32); CHLORIDE LEVEL 99 MEQ/L (98-107); CHOLESTEROL LEVEL 189 MG/DL (<200); CHOLESTEROL RISK RATIO 2.423 (<5); CREATININE FOR GFR 0.67 MG/DL (0.55-1.30); GLOMERULAR FILTRATION RATE > 60.0 (>45); GLUCOSE, FASTING 96 MG/DL (70-100); HDL CHOLESTEROL 78 MG/DL (>40); LDL CHOLESTEROL 99 MG/DL (<100); NON-HDL-C 111 MG/DL; POTASSIUM SERUM 4.2 MEQ/L (3.5-5.1); SODIUM LEVEL 132 MEQ/L (136-145); THYROID STIMULATING HORMONE 0.823 uIU/ML (0.358-3.740); TOTAL PROTEIN 6.4 GM/DL (6.4-8.2); TRIGLYCERIDES LEVEL 60 MG/DL (<150)
== END ==
LOC: M SFHCADAM 08:04
PROVIDERS: ATTEND Family Medicine
DX: Z00.00 Encounter for general adult medical examination without abnormal findings (principal); Z79.899 Other long term (current) drug therapy

== ENCOUNTER → 2022-03-27 | Outpatient (CLI) | payer MEDICARE ==
[~2022-03-27] MED LIST changes: +METR0.7526 TOP; -METR0.7533 TOP
== END ==
LOC: M WHC 10:08
PROVIDERS: ATTEND Family Medicine
DX: Z12.31 Encounter for screening mammogram for malignant neoplasm of breast (principal)

== ENCOUNTER → 2022-05-07 | Outpatient (REF) | payer MEDICARE ==
[2022-05-07 13:20] LABS: APPEARANCE, URINE CLOUDY (CLEAR); BACTERIA, URINE AUTO NEGATIVE (NEGATIVE); BILIRUBIN, URINE AUTO NEGATIVE (NEGATIVE); BLOOD, URINE BLOOD 2+ (NEGATIVE); COLOR, URINE YELLOW (YELLOW); GLUCOSE, URINE (UA) AUTO NEGATIVE (NEGATIVE); KETONE, URINE AUTO NEGATIVE (NEGATIVE); LEUKOCYTE ESTERASE, URINE AUTO 2+ (NEGATIVE); MUCUS, URINE SMALL (NEGATIVE); NITRITE, URINE AUTO NEGATIVE (NEGATIVE); PROTEIN, URINE AUTO 2+ mg/dL (NEGATIVE); RBC, URINE AUTO 140 /HPF (0-3); SPECIFIC GRAVITY URINE AUTO 1.015 (1.002-1.035); SQUAMOUS EPITHELIAL CELL UR AU 0 /HPF (0-6); UROBILINOGEN, URINE AUTO 0.2 mg/dL (0.0-2.0); WBC, URINE AUTO 169 /HPF (0-3)
== END ==
LOC: M SFHCADAM 10:34
PROVIDERS: ATTEND Physician Assistant
DX: R30.0 Dysuria (principal)

== ENCOUNTER → 2022-09-10 | Outpatient (REF) | payer MEDICARE ==
[2022-09-10 14:10] LABS: APPEARANCE, URINE HAZY (CLEAR); BACTERIA, URINE AUTO 1+ (NEGATIVE); BILIRUBIN, URINE AUTO NEGATIVE (NEGATIVE); BLOOD, URINE BLOOD 3+ (NEGATIVE); COLOR, URINE YELLOW (YELLOW); GLUCOSE, URINE (UA) AUTO NEGATIVE (NEGATIVE); KETONE, URINE AUTO NEGATIVE (NEGATIVE); LEUKOCYTE ESTERASE, URINE AUTO 3+ (NEGATIVE); NITRITE, URINE AUTO NEGATIVE (NEGATIVE); PROTEIN, URINE AUTO 2+ mg/dL (NEGATIVE); RBC, URINE AUTO TNTC /HPF (0-3); SPECIFIC GRAVITY URINE AUTO 1.008 (1.002-1.035); SQUAMOUS EPITHELIAL CELL UR AU 0 /HPF (0-6); UROBILINOGEN, URINE AUTO 0.2 mg/dL (0.0-2.0); WBC, URINE AUTO TNTC /HPF (0-3)
== END ==
LOC: M SFHCADAM 12:32
PROVIDERS: ATTEND Physician Assistant Medical
DX: N30.01 Acute cystitis with hematuria (principal)

== ENCOUNTER → 2022-11-09 | Outpatient (REF) | payer MEDICARE ==
[2022-11-09 14:19] LABS: BASO # 0.1 10^3/uL (0.0-0.2); BASO % 0.8 % (0.0-1.0); EOS # 0.1 10^3/uL (0.0-0.5); EOS % 1.4 % (0.0-3.0); HEMATOCRIT 38.9 % (36.0-47.0); HEMOGLOBIN 12.7 g/dl (12.0-15.5); LYMPH # 1.5 10^3/uL (1.5-5.0); LYMPH % 23.1 % (24.0-44.0); MEAN CORPUSCULAR HEMOGLOBIN 29.4 pg (27.0-33.0); MEAN CORPUSCULAR HGB CONC 32.6 g/dl (32.0-36.5); MONO # 0.4 10^3/uL (0.0-0.8); MONO % 6.7 % (2.0-8.0); NEUTROPHILS # 4.4 10^3/uL (1.5-8.5); NEUTROPHILS % 67.5 % (36.0-66.0); PLATELET COUNT, AUTOMATED 283 10^3/uL (150-450); RED BLOOD COUNT 4.32 10^6/uL (4.00-5.40); WHITE BLOOD COUNT 6.6 10^3/uL (4.0-10.0)
[2022-11-09 14:43] LABS: ALBUMIN 3.7 G/DL (3.2-5.2); ALKALINE PHOSPHATASE 67 U/L (46-116); ALT/SGPT 22 U/L (7.0-40); AST/SGOT 15 U/L (<34); BILIRUBIN,TOTAL 0.7 MG/DL (0.3-1.2); BLOOD UREA NITROGEN 13 MG/DL (9-23); CARBON DIOXIDE LEVEL 27 MMOL/L (20-31); CHLORIDE LEVEL 103 MMOL/L (98-107); CHOLESTEROL LEVEL 190 MG/DL (<200); CHOLESTEROL RISK RATIO 2.67 (<5); CREATININE FOR GFR 0.72 MG/DL (0.55-1.30); GLOMERULAR FILTRATION RATE > 60.0 (>45); GLUCOSE, FASTING 93 MG/DL (74-106); HDL CHOLESTEROL 71.1 MG/DL (>40); LDL CHOLESTEROL 105.9 MG/DL (<100); NON-HDL-C 118.9 MG/DL; POTASSIUM SERUM 4.6 MMOL/L (3.5-5.1); SODIUM LEVEL 137 MMOL/L (136-145); THYROID STIMULATING HORMONE 1.045 uIU/ML (0.55-4.78); TOTAL PROTEIN 6.1 G/DL (5.7-8.2); TRIGLYCERIDES LEVEL 65 MG/DL (<150)
== END ==
LOC: M SFHCADAM 08:16
PROVIDERS: ATTEND Physician Assistant
DX: Z00.00 Encounter for general adult medical examination without abnormal findings (principal); L71.9 Rosacea, unspecified

== ENCOUNTER → 2023-11-23 | Outpatient (REF) | payer MEDICARE ==
[2023-11-23 13:26] LABS: ALBUMIN 3.9 G/DL (3.2-5.2); ALKALINE PHOSPHATASE 76 U/L (46-116); ALT/SGPT 22 U/L (7.0-40); AST/SGOT 15 U/L (<34); BILIRUBIN,TOTAL 0.7 MG/DL (0.3-1.2); BLOOD UREA NITROGEN 11 MG/DL (9-23); CALCIUM LEVEL 9.7 MG/DL (8.3-10.6); CARBON DIOXIDE LEVEL 26 MMOL/L (20-31); CHLORIDE LEVEL 103 MMOL/L (98-107); CHOLESTEROL LEVEL 204 MG/DL (<200); CHOLESTEROL RISK RATIO 3.03 (<5); CREATININE FOR GFR 0.69 MG/DL (0.55-1.30); GLOMERULAR FILTRATION RATE > 60.0 (>45); GLUCOSE, FASTING 116 MG/DL (74-106); HDL CHOLESTEROL 67.3 MG/DL (>40); LDL CHOLESTEROL 116.7 MG/DL (<100); NON-HDL-C 136.7 MG/DL; POTASSIUM SERUM 3.9 MMOL/L (3.5-5.1); SODIUM LEVEL 136 MMOL/L (136-145); TOTAL PROTEIN 6.5 G/DL (5.7-8.2); TRIGLYCERIDES LEVEL 100 MG/DL (<150)
[2023-11-23 13:29] LABS: BASO # 0.1 10^3/uL (0.0-0.2); BASO % 0.7 % (0.0-1.0); EOS # 0.1 10^3/uL (0.0-0.5); EOS % 1.3 % (0.0-3.0); HEMATOCRIT 40.2 % (36.0-47.0); HEMOGLOBIN 13.4 g/dl (12.0-15.5); LYMPH # 1.7 10^3/uL (1.5-5.0); LYMPH % 16.2 % (24.0-44.0); MEAN CORPUSCULAR HEMOGLOBIN 29.7 pg (27.0-33.0); MEAN CORPUSCULAR HGB CONC 33.3 g/dl (32.0-36.5); MEAN CORPUSCULAR VOLUME 89.1 fl (80.0-96.0); MONO # 0.7 10^3/uL (0.0-0.8); MONO % 6.3 % (2.0-8.0); NEUTROPHILS % 75.1 % (36.0-66.0); PLATELET COUNT, AUTOMATED 314 10^3/uL (150-450); RED BLOOD COUNT 4.51 10^6/uL (4.00-5.40); WHITE BLOOD COUNT 10.7 10^3/uL (4.0-10.0)
== END ==
LOC: M SFHCADAM 07:55
PROVIDERS: ATTEND Family Medicine
DX: Z00.00 Encounter for general adult medical examination without abnormal findings (principal); E07.9 Disorder of thyroid, unspecified; E78.00 Pure hypercholesterolemia, unspecified

== ENCOUNTER → 2024-01-04 | Outpatient (CLI) | payer MEDICARE | LOC: M WHC 11:27 | PROVIDERS: ATTEND Nurse Practitioner Family | DX: Z12.31 Encounter for screening mammogram for malignant neoplasm of breast (principal); Z12.4 Encounter for screening for malignant neoplasm of cervix; R92.323 Mammographic fibroglandular density, bilateral breasts | CPT/HCPCS: 77063; 77067; 87624; G0123 ==

== ENCOUNTER → 2025-01-08 | Outpatient (CLI) | payer MEDICARE | LOC: M WHC 09:28 | PROVIDERS: ATTEND Nurse Practitioner Family | DX: Z12.31 Encounter for screening mammogram for malignant neoplasm of breast (principal); N95.1 Menopausal and female climacteric states; R92.313 Mammographic fatty tissue density, bilateral breasts; Z13.820 Encounter for screening for osteoporosis ==